=== PATIENT | male | born 1965 | race Caucasian/White ===

== ENCOUNTER 2023-06-27 06:56 | Emergency (ER) | payer BC, OTHER, SELFPAY | END 2023-06-27 07:26 | disposition home or self-care (01) | LOC: BURERS 06:56 | DX: S60.467A Insect bite (nonvenomous) of left little finger, initial encounter (principal); I10 Essential (primary) hypertension; F17.290 Nicotine dependence, other tobacco product, uncomplicated; W57.XXXA Bitten or stung by nonvenomous insect and other nonvenomous arthropods, initial encounter | CPT/HCPCS: 99282 ==